=== PATIENT | male | born 1975 | race Two or more races ===

== ENCOUNTER 2019-01-22 15:09 | Inpatient (IN) | payer OTHER ==
[~2019-01-22] VITALS: Ht 177.8 cm; Wt 86.8 kg
[2019-01-22 16:25] LABS: Basophils # (auto) 0 uL; Basophils % (auto) 0.2 % (0.0-2.0); Eosinophils # (auto) 0 uL; Eosinophils % (auto) 0.1 % (0.0-7.0); Hematocrit 48.8 % (41.0-53.0); Hemoglobin 16.2 g/dL (13.5-17.5); Lymphocytes % (auto) 7.6 % (10.0-50.0); Mean Corpuscular Hemoglobin 30.5 pg (28.0-32.0); Mean Corpuscular Hgb Conc. 33.3 g/dL (32.0-36.0); Mean Corpuscular Volume 91.7 fL (80.0-100.0); Monocytes # (auto) 0.5 uL; Monocytes % (auto) 3.7 % (0.0-12.0); Neutrophils # (auto) 12.2 uL; Neutrophils % (auto) 88.4 % (37.0-80.0); Platelet Count (auto) 246 10^3/uL (140-450); Red Blood Cells 5.32 10^6/uL (4.5-5.90); Red Cell Distribution Width 13.6 % (11.8-14.3); White Blood Cell 13.7 10^3/uL (4.4-10.8)
[2019-01-22 16:39] LABS: Albumin 4.1 g/dL (3.4-5.0); Potassium 4.5 mmol/L (3.5-5.1)
[2019-01-22 16:42] LABS: Bilirubin, Total 0.3 mg/dL (0.2-1.0); Total Protein 8.4 g/dL (6.4-8.2)
[2019-01-22] MEDS ORDERED: SODIUM CHLORIDE 0.9% 1,000 ML IV ONE ×2 (16:43)
[2019-01-22] MEDS ORDERED: ONDANSETRON HCL 4 MG/2 ML VIAL IV ONE (16:45)
[2019-01-22] MEDS ORDERED: TAMSULOSIN HYDROCHLORIDE 0.4 MG CAP PO ONE (16:45)
[2019-01-22] MEDS ORDERED: KETOROLAC TROMETH 15 mg/ml 1ML VL IV ONE (17:00)
[2019-01-22] MEDS ORDERED: ONDANSETRON HCL 4 MG/2 ML VIAL IV PRN (18:45)
[2019-01-22] MEDS ORDERED: MORPHINE SULF INJ 2 MG/ML SYRINGE 1ML IV PRN (18:45)
[2019-01-22] MEDS ORDERED: NITROGLYCERIN 0.4 MG SL TAB SL PRN (18:45)
[2019-01-22] MEDS: D5W/SOD CHL 0.45% 1,000 ML IV SCH (19:09)
[2019-01-22] MEDS: cefTRIAXone 1GM/50ML D5W 50 ML IV SCH (19:12)
[2019-01-22 19:24] LABS: Urine Bacteria FEW /hpf (None Seen); Urine Blood 1+ /uL (Negative); Urine Mucus FEW (None Seen); Urine Specific Gravity 1.033 (1.001-1.035); Urine WBC 3 /hpf (0 - 3)
--- NOTE | 2019-01-22 20:30 | NUR ---
[facility] admit from ER CHRISTY CIFUENTES admitted to [facility] . Patient oriented to KASSI COUCH, shavonne RN, unit, room, bed, and unit policies regarding patient care and visiting hours. Patient weighed by bed scale and encouraged to call if they need something. All questions and concerns addressed, patient verbalized understanding. Guards at bedside. Call feliz with in reach.Bed in low position.
[2019-01-22 20:45] VITALS: BP 143/87
--- NOTE | 2019-01-22 22:14 | NUR ---
Dr. Reji Montemayor called re: stat urology consult. Notified Dr. Montemayor patient is in stable condition, v/s stable, pain 09/18. Patient denies sob or any distress at this time. IV fluids infusing as ordered.
[2019-01-22 22:21] VITALS: BP 143/87
[2019-01-22] MEDS: MORPHINE SULFATE 4 MG/ML SYR/VIAL IV PRN (22:55)
[2019-01-23] MEDS: D5W/SOD CHL 0.45% 1,000 ML IV SCH ×4 (03:02→21:46)
[2019-01-23 05:20] VITALS: BP 101/59
[2019-01-23 07:18] LABS: Basophils # (auto) 0 uL; Basophils % (auto) 0.3 % (0.0-2.0); Eosinophils # (auto) 0.1 uL; Eosinophils % (auto) 1.1 % (0.0-7.0); Hematocrit 41.7 % (41.0-53.0); Hemoglobin 14.1 g/dL (13.5-17.5); Lymphocytes # (auto) 2.7 uL; Lymphocytes % (auto) 26.3 % (10.0-50.0); Mean Corpuscular Hgb Conc. 33.8 g/dL (32.0-36.0); Mean Corpuscular Volume 91.8 fL (80.0-100.0); Monocytes # (auto) 1.1 uL; Monocytes % (auto) 10.4 % (0.0-12.0); Neutrophils # (auto) 6.3 uL; Neutrophils % (auto) 61.9 % (37.0-80.0); Nucleated Red Blood Cells % 0.1 %; Platelet Count (auto) 202 10^3/uL (140-450); Red Blood Cells 4.55 10^6/uL (4.5-5.90); Red Cell Distribution Width 13.3 % (11.8-14.3); White Blood Cell 10.1 10^3/uL (4.4-10.8)
--- NOTE | 2019-01-23 07:20 | NUR ---
Opening Shift Note Assumed care of patient, awake and alert. No S/S of distress/SOB or pain. Instructed on POC and to call for assist PRN, will continue to monitor for changes Q1hr and PRN.
[2019-01-23 07:28] LABS: BUN/Creatinine Ratio 17.4; Calcium 8.5 mg/dL (8.5-10.1)
[2019-01-23 08:00] VITALS: BP_SYST 103; BP_SYST 126; BP_DIAS 56; BP_DIAS 64
[2019-01-23] MEDS ORDERED: MANNITOL FTV 25% 12.5 GM/50 ML 50 ML IV ONE (08:00)
[2019-01-23] MEDS: MORPHINE SULFATE 4 MG/ML SYR/VIAL IV PRN (09:19)
[2019-01-23] MEDS: cefTRIAXone 1GM/50ML D5W 50 ML IV SCH (10:42)
[2019-01-23 12:00] VITALS: BP 105/57
[2019-01-23 12:08] LABS: INR 1.06 (0.9-1.15); Partial Thromboplastin Time 26.2 sec (23.64-32.05)
--- NOTE | 2019-01-23 15:00 | NUR ---
Pre OP Patient transferred to pre op for lithotripsy
[2019-01-23 17:00] VITALS: BP 127/80
[2019-01-23] MEDS: TAMSULOSIN HYDROCHLORIDE 0.4 MG CAP PO SCH (18:19)
--- NOTE | 2019-01-23 19:20 | NUR ---
Opening Shift Note Received report from Melida RAHMAN. Assumed care of patient, awake and alert, guards at bedside. No S/S of distress/SOB or pain. Instructed on POC and to call for assist PRN, will continue to monitor for changes Q1hr and PRN.
[2019-01-23 20:00] VITALS: BP 121/67
[2019-01-23 21:00] VITALS: BP 121/67
[2019-01-24 05:00] VITALS: BP 129/82
--- NOTE | 2019-01-24 07:25 | NUR ---
Opening Shift Note Assumed care of patient, awake and alert. No S/S of distress/SOB or pain. Bed in lowest and locked position with side rails up x2. Instructed on POC and to call for assist PRN, will continue to monitor for changes Q1hr and PRN.
--- NOTE | 2019-01-24 07:36 | NUR ---
Care endorsed to Janet RAHMAN.
[2019-01-24 09:00] VITALS: BP 139/76
[2019-01-24] MEDS: cefTRIAXone 1GM/50ML D5W 50 ML IV SCH (11:03)
[2019-01-24 12:00] VITALS: BP 114/69
[2019-01-24 17:18] VITALS: BP 119/71
[2019-01-24] MEDS: TAMSULOSIN HYDROCHLORIDE 0.4 MG CAP PO SCH (17:57)
[2019-01-24 19:20] VITALS: BP 119/71
[2019-01-24 22:02] VITALS: BP 123/78
--- NOTE | 2019-01-24 22:10 | NUR ---
Discharge instructions given to security guard supervisor. Encourage to follow up with PMD as instructed. All questions and concerns addressed. Patient verbalized understanding. Medication reconciliation form completed and copy given to guards. IV removed with catheter intact. Patient taken to vehicle ambulatory, accompanied by [facility] guards. No distress noted at time of departure.
== END 2019-01-24 22:10 | DRG 694 ==
LOC: ER 15:16 → EEVIPCON 15:16 → OVERFLOW 15:17 → EAST 20:22
PROVIDERS: ADMIT Internal Medicine; ATTEND Internal Medicine
DX: N13.2 Hydronephrosis with renal and ureteral calculous obstruction (principal); B19.20 Unspecified viral hepatitis C without hepatic coma; R31.0 Gross hematuria; Z80.0 Family history of malignant neoplasm of digestive organs; Z80.1 Family history of malignant neoplasm of trachea, bronchus and lung; Z91.041 Radiographic dye allergy status
CPT/HCPCS: 36415; 74018; 74176; 80048; 80053; 81001; 85025; 85610; 85730; 86850; 86900; 86901; 96361; 96365; 96375; G0378; J0696; J2405